=== PATIENT | male | born 1990 | race Two or more races ===

== ENCOUNTER 2025-03-14 23:26 | Emergency (ER) | payer MEDICAID ==
[~2025-03-14] VITALS: Ht 170.2 cm; Wt 72.6 kg
[2025-03-15] MEDS ORDERED: BENZONATATE 100 MG CAPSULE PO ONE (00:31)
[2025-03-15] MEDS ORDERED: KETOROLAC TROMETHAMINE INJ 30 MG/ML VIAL ONE (00:31)
[2025-03-15] MEDS ORDERED: BENZ-13 PO (00:32)
[2025-03-15] MEDS ORDERED: KETO10TA2 PO (00:32)
[2025-03-15] MEDS: BENZONATATE 100 MG CAPSULE PO PRN (00:34)
[2025-03-15] MEDS: KETOROLAC TROMETHAMINE INJ 30 MG/ML VIAL IM ONE (00:34)
[2025-03-15 02:06] VITALS: BP 130/77; TEMP 98.8; O2SAT 98
== END 2025-03-15 02:07 | disposition home or self-care (01) ==
LOC: ER 23:59
DX: B34.9 Viral infection, unspecified (principal); R05.9 Cough, unspecified; Z20.822 Contact with and (suspected) exposure to COVID-19
CPT/HCPCS: 99283; 87426; 96372; J1885